=== PATIENT | female | born 1960 | race African-American/Black ===

== ENCOUNTER → 2016-03-12 | Outpatient (CLI) | payer OTHER ==
[~2016-03-12] MED LIST: COZAAR 50 MG TA50 M2 PO; IBUPROFEN 200200 M1 PO; MOBIC15 MG PO; NAPROSYN500 MG PO; TYLENOL325 MG PO; XANAX 0.5 MG0.5 MG PO
== END ==
LOC: CAT 10:28
DX: Z13.6 Encounter for screening for cardiovascular disorders (principal); E78.00 Pure hypercholesterolemia, unspecified

== ENCOUNTER → 2016-09-19 | Outpatient (CLI) | payer OTHER ==
[~2016-09-19] MED LIST changes: +FLEXERIL PO
[2016-09-19 14:33] LABS: CREATININE 0.5 mg/dL (0.6-1.0)
== END ==
LOC: MRI 13:59
PROVIDERS: Nurse Practitioner
DX: H53.8 Other visual disturbances (principal)

== ENCOUNTER → 2017-03-24 | Outpatient (CLI) | payer OTHER | LOC: RAD 03:36 | DX: Z12.31 Encounter for screening mammogram for malignant neoplasm of breast (principal) ==

== ENCOUNTER → 2017-03-27 | Outpatient (CLI) | payer OTHER | LOC: ULTRA 09:37 | DX: N63.10 Unspecified lump in the right breast, unspecified quadrant (principal); N63.20 Unspecified lump in the left breast, unspecified quadrant ==

== ENCOUNTER → 2017-04-14 | Outpatient (CLI) | payer OTHER ==
--- NOTE | ~2017-04-14 | S ---
[facility] [place] [address] SURGICAL PATH RPT PROCEDURE Name: CHRISTOPHER DURAN Room #: REG [facility]..#: [id number] Admission: 04/14/17 Date of : 64 Discharge: Report #: [id number] Path Case #: [id number] PATHOLOGY REPORT COLLECTION DATE: 04/14/2017 RECEIVED DATE: 04/14/2017 SUBMITTING PHYS: Dr. Edgar Brasher OTHER PHYS: Dr. José Miguel Pollock SPECIMEN(S) RECEIVED: A.Left breast nodule * * * * * * * * * * * * FINAL DIAGNOSIS: Breast, left breast nodule, needle core biopsy: - Benign breast tissue with areas of dense stromal fibrosis, rare breast ducts showing columnar cell change. - Negative for hyperplasia, atypia or malignancy. COMMENT: Co-review: Dr. Minnie Ye. (IUV:db; 04/15/2017) PATHOLOGIST: Lena Boyd M.D. REPORT ELECTRONICALLY SIGNED BY: Lena Boyd M.D. DATE/TIME: 04/15/2017 16:34 * * * * * * * * * * * * GROSS PATHOLOGY: Received in formalin labeled "Christopher Duran, left breast nodule," are multiple needle cores of yellow-lockett fibrofatty tissue measuring 5.4 x 2.8 x 0.5 cm in aggregate dimensions. The tissue is submitted in its entirety in cassettes A1-A3. The cold ischemic time is 1 minute. The total formalin fixation time is 12 hours and 24 minutes. (SDY; 04/14/2017) CLINICAL HISTORY: Left breast nodule INITIAL CPT CODE(S): A; 51097 [facility] [address] [place] [address] [facility] [address] [place] [address] SURGICAL PATH RPT PROCEDURE Name: CHRISTOPHER DURAN [facility] [id number] Admission: 04/14/17 Date of : 64 Discharge: Report #: [id number] Path Case #: [id number] [facility] at [address] [place] [address], [place] [address]. [place] [address] PHONE: [phone] DIRECTOR: Huseyin Joshi M.D. * * * END OF REPORT * * *
== END ==
LOC: RADSTEREO 02:18
DX: D24.2 Benign neoplasm of left breast (principal); N60.82 Other benign mammary dysplasias of left breast; Z88.2 Allergy status to sulfonamides; Z88.8 Allergy status to other drugs, medicaments and biological substances; Z79.899 Other long term (current) drug therapy

== ENCOUNTER → 2018-04-14 | Outpatient (CLI) | payer OTHER | LOC: RAD 04:18 | DX: Z12.31 Encounter for screening mammogram for malignant neoplasm of breast (principal) ==

== ENCOUNTER → 2018-04-28 | Outpatient (CLI) | payer OTHER | LOC: RAD 01:02 | DX: N63.10 Unspecified lump in the right breast, unspecified quadrant (principal) ==

== ENCOUNTER → 2019-05-25 | Outpatient (CLI) | payer OTHER | LOC: RAD 08:20 | DX: Z12.31 Encounter for screening mammogram for malignant neoplasm of breast (principal) ==

== ENCOUNTER → 2020-09-18 | Outpatient (CLI) | payer OTHER | LOC: BC 09:39 | PROVIDERS: ATTEND Family Medicine | DX: Z12.31 Encounter for screening mammogram for malignant neoplasm of breast (principal) ==